=== PATIENT | male | born 1930 | race Caucasian/White ===

== ENCOUNTER 2017-02-27 23:24 | Inpatient (IN) | payer MEDICARE, BC ==
[2017-02-28] MEDS ORDERED: Acetaminophen 325 MG Tab PO PRN (01:04)
[2017-02-28] MEDS ORDERED: Ondansetron 4 MG Tab.DIS PO PRN (01:04)
[2017-02-28] MEDS ORDERED: Bisacodyl 5 MG Tab PO PRN (01:04)
[2017-02-28] MEDS ORDERED: Docusate Sodium 100 MG Cap PO PRN (01:04)
[2017-02-28] MEDS ORDERED: cefTRIAXone 2 GM in Sodium Chloride 0.9% 50 ML IV SCH ×3 (01:04→22:00)
[2017-02-28] MEDS ORDERED: Hypromellose 0.4% Ophth Soln 15 ML Bottle EYEBOTH PRN ×2 (01:04→07:45)
[2017-02-28] MEDS ORDERED: LORazepam 2 MG/ML MDV IV PRN (01:04)
[2017-02-28] MEDS ORDERED: Morphine 2 MG/ML Syringe IVPUSH PRN (01:04)
[2017-02-28] MEDS ORDERED: diphenhydrAMINE 25 MG Cap PO PRN (01:04)
[2017-02-28] MEDS ORDERED: Codeine/guaiFENesin 100mg-10 MG/5 ML Syrup 10 ML Cup PO SCH (01:04)
[2017-02-28] MEDS ORDERED: Magnesium Hydroxide 400 MG/5 ML Susp 30 ML Cup PO PRN (01:04)
[2017-02-28] MEDS ORDERED: Capsaicin 0.025% Crm 60 GM Tube TOP PRN ×2 (01:04→08:00)
[2017-02-28] MEDS ORDERED: Ondansetron 4 MG/2 ML SDV IV PRN (01:04)
[2017-02-28] MEDS ORDERED: Zolpidem 5 MG Tab PO PRN (01:04)
[2017-02-28] MEDS ORDERED: Acetaminophen/HYDROcodone 325-5 MG Tab PO PRN (01:04)
[2017-02-28] MEDS ORDERED: methylPREDNISolone Sodium Succinate 125 MG/2 ML SDV IVPUSH SCH (02:00)
[2017-02-28] MEDS: Melatonin 3 MG Tab PO PRN ×2 (02:19→21:42)
[2017-02-28] MEDS: Sodium Chloride 0.9% 1,000 ML IV SCH ×2 (02:27→08:52)
[2017-02-28] MEDS ORDERED: Pantoprazole 40 MG Vial IV SCH (07:30)
--- NOTE | 2017-02-28 07:33 | PCM.HP ---
H&P History of Present Illness - General Date of Service: 02/28/17 Admit Problem/Dx: Admission Diagnosis/Problem Admission Diagnosis/Problem Pneumonia Source of Information: Patient, EMS Notes Reviewed History Limitations: Reports: Respiratory Distress - History of Present Illness Initial Comments - Free Text/Narative: Pneumonia; this is a 86 year old male, who is a direct admit from [facility] ER, there hospital is divert, therefore we are accepting admission for further care and treatment. Mr. Carrillo arrrives by EMS. Mr. Carrillo reports a 4 day history of cough, congestion, bilateral eye infection. He became progressively weaker with shortness of breath came to ER for treatment from his home at [facility]. In the ER he had labs which show a WBC 12,000, lactic acid 2.7, influenza A and B negative, Chest xray right lower lobe infiltrates. He was given one liter of fluid, Levaquin 750mg IV, Tamiflu 75mg po once, oxygen at 4liter per [place] O2 sat at 90%. Mr. Carrillo has COPD, has home bi-pap for nighttime with oxygen liter flow at 5. 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 lives alone in [facility]. Onset of Symptoms: Reports: Gradual Duration of Symptoms: Reports: Day(s): Location: Reports: Generalized Quality: Reports: Other (shortness of breath) Severity: Severe Improves with: Reports: None Worsens with: Reports: None Associated Symptoms: Reports: Cough, Fever/Chills, Loss of Appetite, Malaise, Shortness of Breath, Weakness Bilateral Eye Pain Score (Numeric/FACES): 2 - Related Data Allergies/Adverse Reactions: Allergies Allergy/AdvReac Type Severity Reaction Status Date / Time No Known Allergies Allergy Verified 02/28/17 01:03 Home Medications: Home Meds Acetaminophen [Mapap] 650 mg PO Q6H PRN 02/28/17 [History] Acetaminophen/HYDROcodone [[place] 325-5 MG] 0.5 - 1 tab PO Q4H PRN 02/28/17 [ History] Albuterol Sulfate 2.5 mg IH Q4H PRN 02/28/17 [History] Amiodarone [Cordarone] 200 mg PO QAM 02/28/17 [History] Ascorbic Acid 1,000 mg PO DAILY 02/28/17 [History] Capsaicin [Zostrix 0.025% Crm] 0.025 gm TP ASDIRECTED PRN 02/28/17 [History] Digoxin 125 mcg PO DAILY 02/28/17 [History] Diltiazem [Cardizem SR] 60 mg PO DAILY 02/28/17 [History] Docusate Sodium 100 mg PO BID 02/28/17 [History] Ferrous Sulfate 325 mg PO BID 02/28/17 [History] Folic Acid 1 mg PO DAILY 02/28/17 [History] Furosemide [Lasix] 40 mg PO BID 02/28/17 [History] Gentamicin [Gentak 0.3% Ophth Oint] 1 - 2 drop EYEBOTH Q4HWA 02/28/17 [History] Metoprolol Tartrate 25 mg PO BID 02/28/17 [History] Multivits,Ca,Min/Iron/FA/Lycop [Centrum Men's Tablet] 1 tab PO QAM 02/28/17 [ History] Vista-3S/DHA/Epa/Fish Oil [Fish Oil Vista-3 Softgel] 1 cap PO BID 02/28/17 [ History] Omeprazole 20 mg PO BIDAC 02/28/17 [History] Polyvinyl Alcohol [Liquitears] 1 drop EYEBOTH ASDIRECTED PRN 02/28/17 [History] Potassium Chloride [Klor-Con M20] 40 meq PO BID 02/28/17 [History] Warfarin Sodium [Coumadin] 4 mg PO DAILY 02/28/17 [History] diphenhydrAMINE [Benadryl] 50 mg PO BEDTIME PRN 02/28/17 [History] Past Medical History Cardiovascular History: Reports: Heart Valve Replacement Other Cardiovascular History: 2 valves Neurological History: Reports: CVA - Past Surgical History Cardiovascular Surgical History: Reports: Valve Replacement Social & Family History - Tobacco Use Smoking Status *Q: Former Smoker Used Tobacco, but Quit: Yes Month Tobacco Last Used: 35 years ago Second Hand Smoke Exposure: No - Caffeine Use Caffeine Use: Reports: None - Recreational Drug Use Recreational Drug Use: No - Living Situation & Occupation Living situation: Reports: Occupation: Retired ( 3 years ago, for 62.5 years, children and extended family in the area, 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 lives in [address].) H&P Review of Systems - Review of Systems: Review Of Systems: See Below General: Reports: Fever, Chills, Malaise, Weakness, Fatigue, Decreased Appetite HEENT: Reports: Rhinitis, Post Nasal Drip, Sinus Congestion, Visual Changes ( bilateral acute eye infections) Pulmonary: Reports: Shortness of Breath, Wheezing, Pleuritic Chest Pain, Cough, Sputum, Other (home Bi-pap with 5 liter of oxygen at night. does not use O2 during the day.) Cardiovascular: Reports: Dyspnea on Exertion Genitourinary: Reports: No Symptoms Musculoskeletal: Reports: No Symptoms Skin: Reports: No Symptoms Psychiatric: Reports: No Symptoms Neurological: Reports: No Symptoms Hematologic/Lymphatic: Reports: No Symptoms Immunologic: Reports: No Symptoms Exam - Exam Exam: See Below - Vital Signs Vital Signs: Last Vital Signs Temp 36.4 C 02/28/17 07:26 Pulse 60 02/28/17 07:26 Resp 18 02/28/17 07:26 BP 118/65 02/28/17 07:26 Pulse Ox 94 L 02/28/17 07:26 Weight: 111.754 kg - Exam Quality Assessment: Supplemental Oxygen General: Alert, Oriented, Cooperative, Mild Distress HEENT: Pupils Equal, Rhinitis (thick green/yellow discharge), Other (bilateral conjunctivitis; sclera injection, mucupurulent discharge from left eye. facial edema.) Neck: Supple, Trachea Midline Lungs: Decreased Breath Sounds, Crackles, Rales (bilateral) Cardiovascular: Regular Rate, Regular Rhythm, Normal S1, Normal S2, Other (mid- line old well healed surgical incision from open heart surgery.) GI/Abdominal Exam: Normal Bowel Sounds, Soft, Non-Tender, Other (large obese abdomen, normal shape and size per patient.) (Male) Exam: Deferred Rectal (Males) Exam: Deferred Back Exam: Normal Inspection, Full Range of Motion Extremities: Normal Inspection, Normal Range of Motion, Non-Tender, No Pedal Edema, Normal Capillary Refill Peripheral Pulses: 2+: Posterior Tibial (L), Posterior Tibial (R), Dorsalis Pedis (L), Dorsalis Pedis (R) Skin: Warm, Dry, Intact, Other (bilateral erythema surrounding eyes.) Neurological: Cranial Nerves Intact, Reflexes Equal Bilateral Neuro Extensive - Mental Status: Alert, Oriented x3, Normal Mood/Affect, Normal Cognition, Memory Intact Neuro Extensive - Motor, Sensory, Reflexes: Motor/Sensory Deficits Psychiatric: Alert, Normal Affect, Normal Mood - Patient Data Lab Results Last 24 hrs: Laboratory Results - last 24 hr 02/28/17 02/28/17 02/28/17 Range/Units 01:21 01:21 05:50 WBC 11.5 H (4.5-11.0) K/uL RBC 4.87 (4.30-5.90) M/uL Hgb 14.8 (12.0-15.0) g/dL Hct 45.7 (40.0-54.0) % MCV 94 (80-98) fL MCH 30 (27-31) pg MCHC 32 (32-36) % Plt Count 156 (150-400) K/uL Neut % (Auto) 90 H (36-66) % Lymph % (Auto) 6 L (24-44) % Platte % (Auto) 4 (2-6) % Eos % (Auto) 0 L (2-4) % Baso % (Auto) 0 (0-1) % PT (9.5-12.0) sec INR (0.80-1.20) Sodium (140-148) mmol/L Potassium (3.6-5.2) mmol/L Chloride (100-108) mmol/L Carbon Dioxide (21-32) mmol/L Anion Gap (5.0-14.0) mmol/L BUN (7-18) mg/dL Creatinine (0.8-1.3) mg/dL Est Cr Clr Drug Dosing mL/min Estimated GFR (MDRD) (>60) Glucose (74-106) mg/dL Lactic Acid 2.4 H (0.4-2.0) mmol/L Calcium (8.5-10.1) mg/dL Total Bilirubin (0.2-1.0) mg/dL AST (15-37) U/L ALT (12-78) U/L Alkaline Phosphatase (46-116) U/L C-Reactive Protein 17.42 H (0.0-0.3) mg/dL Total Protein (6.4-8.2) g/dL Albumin (3.4-5.0) g/dL Globulin (2.3-3.5) g/dL Albumin/Globulin Ratio (1.2-2.2) 02/28/17 02/28/17 Range/Units 05:50 05:50 WBC (4.5-11.0) K/uL RBC (4.30-5.90) M/uL Hgb (12.0-15.0) g/dL Hct (40.0-54.0) % MCV (80-98) fL MCH (27-31) pg MCHC (32-36) % Plt Count (150-400) K/uL Neut % (Auto) (36-66) % Lymph % (Auto) (24-44) % Platte % (Auto) (2-6) % Eos % (Auto) (2-4) % Baso % (Auto) (0-1) % PT 40.8 H (9.5-12.0) sec INR 3.61 H (0.80-1.20) Sodium 140 (140-148) mmol/L Potassium 3.9 (3.6-5.2) mmol/L Chloride 102 (100-108) mmol/L Carbon Dioxide 31 (21-32) mmol/L Anion Gap 7.4 (5.0-14.0) mmol/L BUN 28 H (7-18) mg/dL Creatinine 0.9 (0.8-1.3) mg/dL Est Cr Clr Drug Dosing 60.83 mL/min Estimated GFR (MDRD) > 60 (>60) Glucose 202 H (74-106) mg/dL Lactic Acid (0.4-2.0) mmol/L Calcium 7.5 L (8.5-10.1) mg/dL Total Bilirubin 0.7 (0.2-1.0) mg/dL AST 46 H (15-37) U/L ALT 41 (12-78) U/L Alkaline Phosphatase 62 (46-116) U/L C-Reactive Protein (0.0-0.3) mg/dL Total Protein 4.4 L (6.4-8.2) g/dL Albumin 1.4 L (3.4-5.0) g/dL Globulin 3.0 (2.3-3.5) g/dL Albumin/Globulin Ratio 0.5 L (1.2-2.2) Result Diagrams: 02/28/17 05:50 02/28/17 05:50 Fran Results Last 24 hrs: Microbiology 02/28/17 01:36 Gram Stain - Final Sputum - Expectorated *Q Meaningful Use (ADM) - VTE *Q VTE Criteria *Q: - Stroke *Q Stroke Criteria *Q: - AMI *Q AMI Criteria *Q: - Problem List (1) Pneumonia SNOMED Code(s): 790176255 ICD Code: J18.9 - PNEUMONIA, UNSPECIFIED ORGANISM Status: Acute Priority : High Current Visit: Yes Qualifiers: Pneumonia type: due to unspecified organism Laterality: right Lung location: lower lobe of lung Qualified Code(s): J18.1 - Lobar pneumonia, unspecified organism (2) HTN (hypertension) SNOMED Code(s): 73209711 ICD Code: I10 - ESSENTIAL (PRIMARY) HYPERTENSION Status: Acute Priority: High Current Visit: Yes Qualifiers: Hypertension type: essential hypertension Qualified Code(s): I10 - Essential (primary) hypertension (3) Conjunctivitis of both eyes SNOMED Code(s): 0739291 ICD Code: H10.9 - UNSPECIFIED CONJUNCTIVITIS Status: Acute Priority: High Current Visit: Yes Qualifiers: Conjunctivitis type: acute Acute conjunctivitis type: bacterial Qualified Code(s): H10.33 - Unspecified acute conjunctivitis, bilateral (4) History of artificial heart valve Status: Acute Priority: High Current Visit: Yes Problem List Initiated/Reviewed/Updated: Yes Orders Last 24hrs: Active Orders 24 hr Category Date Time Status Patient Status [ADT] Routine ADT 02/28/17 01:04 Active Bedrest Bathroom Privileges [RC] ASDIRECTED Care 02/28/17 01:04 Active Intake and Output [RC] QSHIFT Care 02/28/17 01:04 Active Notify Provider Vital Signs [RC] ASDIRECTED Care 02/28/17 01:04 Active Oxygen Therapy [RC] PRN Care 02/28/17 01:04 Active Pulse Oximetry [RC] CONTINUOUS Care 02/28/17 01:04 Active RT Aerosol Therapy [RC] ASDIRECTED Care 02/28/17 01:04 Active RT Incentive Spirometry [RC] ASDIRECTED Care 02/28/17 01:04 Active VTE/DVT Education [RC] Per Unit Routine Care 02/28/17 01:04 Active Vital Signs [RC] Q4H Care 02/28/17 01:04 Active OT Evaluation and Treatment [CONS] Routine Cons 02/28/17 01:04 Active PT Evaluation and Treatment [CONS] Routine Cons 02/28/17 01:04 Active Regular Diet [DIET] Diet 02/28/17 Breakfast Active Chest 1V Frontal [CR] AM Exams 02/28/17 05:11 Taken CULTURE RESPIRATORY + SMEAR [RM] Stat Lab 02/28/17 01:36 Results UA W/MICROSCOPIC [URIN] Urgent Lab 02/28/17 01:04 Uncollected Acetaminophen [Tylenol] Med 02/28/17 01:04 Active 650 mg PO Q4H PRN Acetaminophen/HYDROcodone [Lansing 325-5 MG] Med 02/28/17 01:04 Active 1 tab PO Q4H PRN Albuterol [Proventil Neb Soln] Med 02/28/17 01:04 Active 2.5 mg NEB Q4H PRN Albuterol/Ipratropium [DuoNeb 3.0-0.5 MG/3 ML] Med 02/28/17 07:00 Active 3 ml NEB QIDRT Amiodarone [Cordarone] Med 02/28/17 09:00 Active 200 mg PO QAM Ascorbic Acid [Vitamin C] Med 02/28/17 09:00 Active 1,000 mg PO DAILY Bisacodyl [Dulcolax] Med 02/28/17 01:04 Active 5 mg PO DAILY PRN Capsaicin [Zostrix 0.025% Crm] Med 02/28/17 01:04 Active 0.025 gm TOP ASDIRECTED PRN Codeine/guaiFENesin [Robitussin AC] Med 02/28/17 01:04 Active 10 ml PO Q6H Digoxin [Lanoxin] Med 02/28/17 09:00 Active 125 mcg PO DAILY Diltiazem [Cardizem SR] Med 02/28/17 09:00 Active 60 mg PO DAILY Docusate Sodium [Colace] Med 02/28/17 01:04 Active 100 mg PO BID PRN Ferrous Sulfate Med 02/28/17 09:00 Active 325 mg PO BID Folic Acid Med 02/28/17 09:00 Active 1 mg PO DAILY Furosemide [Lasix] Med 02/28/17 08:00 Active 40 mg PO BIDDIURETIC Gentamicin [Gentak 0.3% Ophth Oint] Med 02/28/17 01:04 Pending DOSE gm EYEBOTH Q4HWA Hypromellose [Natural Balance Tears] Med 02/28/17 01:04 Active 1 ml EYEBOTH ASDIRECTED PRN LORazepam [Ativan] Med 02/28/17 01:04 Active 1 mg IV Q6H PRN Levofloxacin/Dextrose 5%-Water [Levaquin in D5W 750 MG/ Med 02/28/17 21:00 Active 150 ML] 750 mg Premix Bag 1 bag IV Q24H Magnesium Hydroxide [Milk of Magnesia] Med 02/28/17 01:04 Active 30 ml PO Q12H PRN Melatonin Med 02/28/17 01:04 Active 6 mg PO BEDTIME PRN Metoprolol Tartrate [Lopressor] Med 02/28/17 09:00 Active 25 mg PO BID Morphine Med 02/28/17 01:04 Active 2 mg IVPUSH Q2H PRN Ondansetron [Zofran ODT] Med 02/28/17 01:04 Active 4 mg PO Q6H PRN Ondansetron [Zofran] Med 02/28/17 01:04 Active 4 mg IV Q4H PRN Pantoprazole [ProTONIX IV] Med 02/28/17 07:30 Active 40 mg IV ACBREAKFAST Pneumococcal Polyvalent-23 Vac [Pneumovax 23] Med 03/02/17 14:00 Once 0.5 ml IM .ONCE ONE Potassium Chloride [Klor-Con M20] Med 02/28/17 09:00 Active 40 meq PO BID Sodium Chloride 0.9% [Normal Saline] 1,000 ml Med 02/28/17 01:04 Active IV ASDIRECTED Warfarin [Coumadin] Med 02/28/17 14:00 Active 4 mg PO DAILY@1400 Zolpidem [Ambien] Med 02/28/17 01:04 Active 5 mg PO BEDTIME PRN cefTRIAXone [Rocephin] 2 gm Med 02/28/17 01:30 Active Sodium Chloride 0.9% [Normal Saline] 50 ml IV Q24H diphenhydrAMINE [Benadryl] Med 02/28/17 01:04 Active 50 mg PO BEDTIME PRN methylPREDNISolone Sod Succ [Solu-MEDROL] Med 02/28/17 02:00 Active 125 mg IVPUSH Q8H Blood Culture x2 Reflex Set [OM.PC] Urgent Oth 02/28/17 01:04 Ordered Give supplemental Oxygen PRN [COMM] Routine Oth 02/28/17 01:04 Ordered Resuscitation Status Routine Resus Stat 02/28/17 00:23 Ordered Medication Orders Acetaminophen (Tylenol) 650 mg PO Q4H PRN PRN Reason: Pain (Mild 1-3)/fever Hydrocodone Bitart/Acetaminophen ([place]ing 325-5 Mg) 1 tab PO Q4H PRN PRN Reason: Pain (moderate 4-6) Albuterol (Proventil Neb Soln) 2.5 mg NEB Q4H PRN PRN Reason: Shortness Of Breath/wheezing Albuterol/Ipratropium (Duoneb 3.0-0.5 Mg/3 Ml) 3 ml NEB QIDRT [facility] Amiodarone HCl (Cordarone) 200 mg PO QAM [facility] Artificial Tears (Natural Balance Tears) 1 ml EYEBOTH ASDIRECTED PRN PRN Reason: Dry Eyes Ascorbic Acid (Vitamin C) 1,000 mg PO DAILY [facility] Bisacodyl (Dulcolax) 5 mg PO DAILY PRN PRN Reason: Constipation Capsaicin (Zostrix 0.025% Crm) 0.025 gm TOP ASDIRECTED PRN PRN Reason: Pain Digoxin (Lanoxin) 125 mcg PO DAILY [facility] Diltiazem HCl (Cardizem Sr) 60 mg PO DAILY [facility] Diphenhydramine HCl (Benadryl) 50 mg PO BEDTIME PRN PRN Reason: Sleep Docusate Sodium (Colace) 100 mg PO BID PRN PRN Reason: Constipation Ferrous Sulfate (Ferrous Sulfate) 325 mg PO BID [facility] Folic Acid (Folic Acid) 1 mg PO DAILY [facility] Furosemide (Lasix) 40 mg PO BIDDIURETIC [facility] Gentamicin Sulfate (Gentak 0.3% Ophth Oint) gm EYEBOTH Q4HWA [facility]AL[facility] Guaifenesin/Codeine Phosphate (Robitussin Ac) 10 ml PO Q6H [facility]AL[facility] Last Admin: 02/28/17 02:19 Dose: Not Given Levofloxacin/Dextrose 750 mg/ (Premix) 150 mls @ 100 mls/hr IV Q24H [facility] Sodium Chloride (Normal Saline) 1,000 mls @ 125 mls/hr IV ASDIRECTED [facility] Last Admin: 02/28/17 02:27 Dose: 125 mls/hr Ceftriaxone Sodium 2 gm/ (Sodium Chloride) 50 mls @ 100 mls/hr IV Q24H [facility] Last Admin: 02/28/17 02:19 Dose: 100 mls/hr Lorazepam (Ativan) 1 mg IV Q6H PRN PRN Reason: Nausea/Vomiting Magnesium Hydroxide (Milk Of Magnesia) 30 ml PO Q12H PRN PRN Reason: Constipation Melatonin (Melatonin) 6 mg PO BEDTIME PRN PRN Reason: Insomnia Last Admin: 02/28/17 02:19 Dose: 6 mg Methylprednisolone Sodium Succinate (Solu-Medrol) 125 mg IVPUSH Q8H [facility] Last Admin: 02/28/17 02:19 Dose: 125 mg Metoprolol Tartrate (Lopressor) 25 mg PO BID [facility] Morphine Sulfate (Morphine) 2 mg IVPUSH Q2H PRN PRN Reason: Pain (severe 7-10) Ondansetron HCl (Zofran Odt) 4 mg PO Q6H PRN PRN Reason: Nausea able to take PO Ondansetron HCl (Zofran) 4 mg IV Q4H PRN PRN Reason: Nausea/Vomiting Pantoprazole Sodium (Protonix Iv) 40 mg IV ACBREAKFAST [facility] Pneumococcal Polyvalent Vaccine (Pneumovax 23) 0.5 ml IM .ONCE ONE Stop: 03/02/17 14:01 Potassium Chloride (Klor-Con M20) 40 meq PO BID [facility] Warfarin Sodium (Coumadin) 4 mg PO DAILY@1400 [facility] Zolpidem Tartrate (Ambien) 5 mg PO BEDTIME PRN PRN Reason: Sleep Assessment/Plan Comment:: Assessment/Plan Comment:: ASSESSMENT AND PLAN - Mr. Carrillo reports a 4 day history of cough, congestion, bilateral eye infection. He became progressively weaker with shortness of breath came to ER for treatment from his home at [facility]. In the ER he had labs which show a WBC 12,000, lactic acid 2.7, influenza A and B negative, Chest xray right lower lobe infiltrates. He was given one liter of fluid, Levaquin 750mg IV, Tamiflu 75mg po once, oxygen at 4liter per [place] O2 sat at 90%. Right lower lober pneumonia with hypoxia - history of COPD. He is hypoxic and requiring supplemental oxygen and not safe for outpatient management. No fevers at this time. No recent antibiotics. -IV Levofloxacin 750mg every 24 hours -IV Rocephin 2mg every 24 hours -IV fluid bolus followed by continuous infusion overnight -Sputum culture pending -Supplement oxygen at 4 liters per NC -Scheduled and as needed nebulizers -IV Solumedrol 125mg mg now and every 8 hours Essential hypertension - blood pressure currently normal but will need to be monitored closely with active infection. Usual medications will be continued unless blood pressure trends down Hx of artificial Heart Valve replacement -Coumadin therapy -continue home medication Bilateral Conjunctivitis -Gentamycin opth ointment as directed -eye care cleansing. Maintenance issues - - DVT prophylaxis - enoxaparin - GI prophylaxis - IV Protonix 40mg po daily - Nutrition - regular diet - Sarmiento catheter - not indicated CODE STATUS - DNR/DNI Admission justification - This patient will be admitted for inpatient services and is medically appropriate meeting medical necessity for inpatient admission as outlined in my documentation. I reasonably expect the patient will require inpatient services that span a period time over 2 midnights. I reasonably expect this patient to be discharged or transferred within 96 hours [facility]. Disposition - anticipate discharge home after the hospital stay [facility] physician - [facility]: Kenroy Haney M.D.
[2017-02-28] MEDS: Albuterol/Ipratropium 3.0-0.5 MG/3 ML Neb Soln NEB SCH ×4 (08:26→21:33)
[2017-02-28] MEDS: Potassium Chloride 20 MEQ Tab.ER PO SCH ×2 (08:46→16:43)
[2017-02-28] MEDS: Pantoprazole 40 MG Tab.CR PO SCH (08:46)
[2017-02-28] MEDS: Furosemide 40 MG Tab PO SCH ×2 (08:46→13:37)
[2017-02-28] MEDS: Ascorbic Acid 500 MG Tab PO SCH (08:47)
[2017-02-28] MEDS: Amiodarone 200 MG Tab PO SCH (08:47)
[2017-02-28] MEDS: Folic Acid 1 MG Tab PO SCH (08:47)
[2017-02-28] MEDS: Codeine/guaiFENesin 100mg-10 MG/5 ML Syrup 10 ML Cup PO SCH ×3 (08:47→21:34)
[2017-02-28] MEDS: Levofloxacin/Dextrose 5%-Water 750 MG in Premix Bag 1 BAG IV SCH (08:47)
[2017-02-28] MEDS ORDERED: Ferrous Sulfate 325 MG Tab PO SCH (09:00)
[2017-02-28] MEDS: methylPREDNISolone Sodium Succinate 125 MG/2 ML SDV IVPUSH SCH ×2 (10:29→18:50)
[2017-02-28] MEDS: Diltiazem 60 MG Cap.SR PO SCH (11:10)
[2017-02-28] MEDS: Metoprolol Tartrate 25 MG Tab PO SCH ×2 (11:16→21:38)
[2017-02-28] MEDS: Gentamicin 0.3% Ophth Soln 5 ML Bottle EYEBOTH SCH ×4 (11:26→21:59)
[2017-02-28] MEDS: Digoxin 125 MCG Tab PO SCH (13:38)
[2017-02-28] MEDS ORDERED: Sodium Chloride 0.9% 1,000 ML IV SCH (15:05)
[2017-02-28] MEDS: metFORMIN 500 MG Tab PO SCH (16:43)
[2017-03-01] MEDS: methylPREDNISolone Sodium Succinate 125 MG/2 ML SDV IVPUSH SCH (02:52)
[2017-03-01] MEDS: Albuterol/Ipratropium 3.0-0.5 MG/3 ML Neb Soln NEB SCH ×4 (07:06→20:43)
[2017-03-01] MEDS: Gentamicin 0.3% Ophth Soln 5 ML Bottle EYEBOTH SCH ×5 (07:57→22:04)
[2017-03-01] MEDS: metFORMIN 500 MG Tab PO SCH ×2 (08:00→16:51)
[2017-03-01] MEDS: Pantoprazole 40 MG Tab.CR PO SCH (08:00)
[2017-03-01] MEDS: predniSONE 20 MG Tab PO SCH ×2 (08:01→15:39)
[2017-03-01] MEDS: Potassium Chloride 20 MEQ Tab.ER PO SCH ×2 (08:01→16:51)
[2017-03-01] MEDS: Diltiazem 60 MG Cap.SR PO SCH (08:01)
[2017-03-01] MEDS: Furosemide 40 MG Tab PO SCH ×2 (08:01→14:46)
[2017-03-01] MEDS: Levofloxacin/Dextrose 5%-Water 750 MG in Premix Bag 1 BAG IV SCH (08:01)
[2017-03-01] MEDS: Ascorbic Acid 500 MG Tab PO SCH (08:02)
[2017-03-01] MEDS: Amiodarone 200 MG Tab PO SCH (08:02)
[2017-03-01] MEDS: Metoprolol Tartrate 25 MG Tab PO SCH ×2 (08:02→20:48)
[2017-03-01] MEDS: Folic Acid 1 MG Tab PO SCH (08:02)
[2017-03-01] MEDS: Codeine/guaiFENesin 100mg-10 MG/5 ML Syrup 10 ML Cup PO SCH ×3 (08:09→20:49)
[2017-03-01] MEDS: Digoxin 125 MCG Tab PO SCH (14:45)
--- NOTE | 2017-03-01 15:24 | PCM.PN ---
- General Info Date of Service: 03/01/17 Functional Status: Reports: Pain Controlled, Tolerating Diet - Review of Systems General: Denies: Fever Pulmonary: Reports: Cough Systems Review Comment:: No acute events overnight. Patient did use C Pap with oxygen overnight but is off supplemental oxygen this morning. Cough is getting better. Appetite is excellent. Strength seems to be improving but he remains weak from baseline. He has not had any fevers. Tolerating current medications. Blood sugars have risen with the use of steroids. - Patient Data Vitals - Most Recent: Last Vital Signs Temp 36.8 C 03/01/17 14:38 Pulse 60 03/01/17 14:45 Resp 16 03/01/17 14:38 BP 101/55 L 03/01/17 14:38 Pulse Ox 99 03/01/17 14:38 Weight - Most Recent: 111.754 kg I&O - Last 24 Hours: Intake & Output 03/01/17 03/01/17 03/01/17 06:59 14:59 22:59 Intake Total 1595 Output Total 725 700 Balance -725 895 Lab Results Last 24 Hours: Laboratory Results - last 24 hr 03/01/17 03/01/17 03/01/17 Range/Units 06:01 06:01 11:19 WBC 10.4 (4.5-11.0) K/uL RBC 4.69 (4.30-5.90) M/uL Hgb 14.1 (12.0-15.0) g/dL Hct 43.8 (40.0-54.0) % MCV 93 (80-98) fL MCH 30 (27-31) pg MCHC 32 (32-36) % Plt Count 174 (150-400) K/uL PT 32.6 H (9.5-12.0) sec INR 2.91 H (0.80-1.20) Sodium 140 (140-148) mmol/L Potassium 4.3 (3.6-5.2) mmol/L Chloride 103 (100-108) mmol/L Carbon Dioxide 27 (21-32) mmol/L Anion Gap 9.6 (5.0-14.0) mmol/L BUN 32 H (7-18) mg/dL Creatinine 1.0 (0.8-1.3) mg/dL Est Cr Clr Drug Dosing 54.75 mL/min Estimated GFR (MDRD) > 60 (>60) Glucose 296 H (74-106) mg/dL Calcium 7.3 L (8.5-10.1) mg/dL Fran Results Last 24 Hours: Microbiology 02/28/17 01:36 Gram Stain - Final Sputum - Expectorated Respiratory Culture - Preliminary NORMAL RESPIRATORY [facility]ROS 1 DAY Med Orders - Current: Current Medications Acetaminophen (Tylenol) 650 mg PO Q4H PRN PRN Reason: Pain (Mild 1-3)/fever Hydrocodone Bitart/Acetaminophen ([place] 325-5 Mg) 1 tab PO Q4H PRN PRN Reason: Pain (moderate 4-6) Albuterol (Proventil Neb Soln) 2.5 mg NEB Q4H PRN PRN Reason: Shortness Of Breath/wheezing Albuterol/Ipratropium (Duoneb 3.0-0.5 Mg/3 Ml) 3 ml NEB QIDRT [facility] Last Admin: 03/01/17 14:24 Dose: 3 ml Amiodarone HCl (Cordarone) 200 mg PO QAM [facility] Last Admin: 03/01/17 08:02 Dose: 200 mg Artificial Tears (Natural Balance Tears) 0 ml EYEBOTH ASDIRECTED PRN PRN Reason: Dry Eyes Ascorbic Acid (Vitamin C) 1,000 mg PO DAILY [facility] Last Admin: 03/01/17 08:02 Dose: 1,000 mg Bisacodyl (Dulcolax) 5 mg PO DAILY PRN PRN Reason: Constipation Capsaicin (Zostrix 0.025% Crm) 0 gm TOP ASDIRECTED PRN PRN Reason: Pain Digoxin (Lanoxin) 125 mcg PO DAILY@1300 [facility] Last Admin: 03/01/17 14:45 Dose: 125 mcg Diltiazem HCl (Cardizem Sr) 60 mg PO DAILY [facility] Last Admin: 03/01/17 08:01 Dose: 60 mg Diphenhydramine HCl (Benadryl) 50 mg PO BEDTIME PRN PRN Reason: Sleep Last Admin: 02/28/17 23:52 Dose: 50 mg Docusate Sodium (Colace) 100 mg PO BID PRN PRN Reason: Constipation Folic Acid (Folic Acid) 1 mg PO DAILY [facility] Last Admin: 03/01/17 08:02 Dose: 1 mg Furosemide (Lasix) 40 mg PO BIDDIURETIC [facility] Last Admin: 03/01/17 14:46 Dose: 40 mg Gentamicin Sulfate (Garamycin 0.3% Ophth Soln) 0 ml EYEBOTH Q4HWA [facility] Stop: 03/04/17 23:01 Last Admin: 03/01/17 12:00 Dose: 2 drop Guaifenesin/Codeine Phosphate (Robitussin Ac) 10 ml PO TID [facility] Last Admin: 03/01/17 14:46 Dose: 10 ml Levofloxacin/Dextrose 750 mg/ (Premix) 150 mls @ 100 mls/hr IV Q24H [facility] Last Admin: 03/01/17 08:01 Dose: 100 mls/hr Insulin Aspart (Novolog) 0 unit SUBCUT QIDACANDBED [facility] PRN Reason: Protocol Magnesium Hydroxide (Milk Of Magnesia) 30 ml PO Q12H PRN PRN Reason: Constipation Melatonin (Melatonin) 6 mg PO BEDTIME PRN PRN Reason: Insomnia Last Admin: 02/28/17 21:42 Dose: 6 mg Metformin HCl (Glucophage) 500 mg PO ACBREAKFAST [facility] Last Admin: 03/01/17 08:00 Dose: 500 mg Metformin HCl (Glucophage) 1,000 mg PO WITHDINNER [facility] Last Admin: 02/28/17 16:43 Dose: 1,000 mg Metoprolol Tartrate (Lopressor) 25 mg PO BID [facility] Last Admin: 03/01/17 08:02 Dose: 25 mg Morphine Sulfate (Morphine) 2 mg IVPUSH Q2H PRN PRN Reason: Pain (severe 7-10) Ondansetron HCl (Zofran Odt) 4 mg PO Q6H PRN PRN Reason: Nausea able to take PO Ondansetron HCl (Zofran) 4 mg IV Q4H PRN PRN Reason: Nausea/Vomiting Pantoprazole Sodium (Protonix) 40 mg PO ACBREAKFAST [facility] Last Admin: 03/01/17 08:00 Dose: 40 mg Phenyleph/Shark Oil/Min Oil/Petrol (Preparation H Oint) 0 gm RECTAL ASDIRECTED PRN PRN Reason: Hemorrhoids Pneumococcal Polyvalent Vaccine (Pneumovax 23) 0.5 ml IM .ONCE ONE Stop: 03/02/17 14:01 Potassium Chloride (Klor-Con M20) 40 meq PO BIDMEALS [facility] Last Admin: 03/01/17 08:01 Dose: 40 meq Prednisone (Prednisone) 20 mg PO BIDAC [facility] Last Admin: 03/01/17 08:01 Dose: 20 mg Warfarin Sodium (Coumadin) 4 mg PO DAILY@1300 [facility] Last Admin: 03/01/17 14:45 Dose: 4 mg Zolpidem Tartrate (Ambien) 5 mg PO BEDTIME PRN PRN Reason: Sleep Discontinued Medications Ferrous Sulfate (Ferrous Sulfate) 325 mg PO BID [facility] Last Admin: 02/28/17 08:47 Dose: 325 mg Guaifenesin/Codeine Phosphate (Robitussin Ac) 10 ml PO Q6H [facility] Last Admin: 02/28/17 02:19 Dose: Not Given Guaifenesin/Codeine Phosphate (Robitussin Ac) 10 ml PO Q6H [facility] Last Admin: 02/28/17 13:37 Dose: 10 ml Ceftriaxone Sodium 2 gm/ (Sodium Chloride) 50 mls @ 100 mls/hr IV Q8H [facility] Last Admin: 02/28/17 02:35 Dose: Not Given Sodium Chloride (Normal Saline) 1,000 mls @ 125 mls/hr IV ASDIRECTED [facility] Last Admin: 02/28/17 08:52 Dose: 125 mls/hr Ceftriaxone Sodium 2 gm/ (Sodium Chloride) 50 mls @ 100 mls/hr IV Q24H [facility] Last Admin: 02/28/17 02:19 Dose: 100 mls/hr Ceftriaxone Sodium 2 gm/ (Sodium Chloride) 50 mls @ 100 mls/hr IV Q24H [facility] Last Admin: 02/28/17 21:39 Dose: 100 mls/hr Sodium Chloride (Normal Saline) 1,000 mls @ 75 mls/hr IV ASDIRECTED [facility] Last Admin: 02/28/17 21:39 Dose: 75 mls/hr Lorazepam (Ativan) 1 mg IV Q6H PRN PRN Reason: Nausea/Vomiting Methylprednisolone Sodium Succinate (Solu-Medrol) 125 mg IVPUSH Q8H [facility] Last Admin: 02/28/17 02:19 Dose: 125 mg Methylprednisolone Sodium Succinate (Solu-Medrol) 62.5 mg IVPUSH Q8H [facility] Stop: 03/01/17 02:00 Last Admin: 03/01/17 02:52 Dose: 62.5 mg Warfarin Sodium (Coumadin) 4 mg PO DAILY@1300 [facility] - Exam Quality Assessment: No: Supplemental Oxygen General: Alert, Oriented, Cooperative, No Acute Distress Neck: Supple Lungs: Normal Respiratory Effort, Crackles (right lung base) Cardiovascular: Regular Rate, Regular Rhythm GI/Abdominal Exam: Soft, No Distention Extremities: Pedal Edema Psy/Mental Status: Alert, Normal Affect - Problem List Review Problem List Initiated/Reviewed/Updated: Yes - My Orders Last 24 Hours: My Active Orders 02/28/17 17:00 metFORMIN [Glucophage] 1,000 mg PO WITHDINNER 02/28/17 21:00 Codeine/guaiFENesin [Robitussin AC] 10 ml PO TID 03/01/17 07:30 metFORMIN [Glucophage] 500 mg PO ACBREAKFAST 03/01/17 08:00 predniSONE 20 mg PO BIDAC 03/01/17 09:28 MO/Pet,Wh/Phenylephrine/Shk Lv [Preparation H Oint] 0 gm RECTAL ASDIRECTED PRN 03/01/17 11:20 Convert IV to Saline Lock [OM.PC] Routine 03/01/17 12:54 Communication Order [RC] PRN Communication Order [RC] PRN Diabetes Education [RC] Click to Edit Notify Provider [RC] PRN 03/01/17 13:00 Warfarin [Coumadin] 4 mg PO DAILY@1300 03/01/17 16:30 GLUCOSE POC LAB TO COLLECT [POC] QIDACANDBED 03/01/17 17:00 Insulin Aspart [NovoLOG] See Protocol SUBCUT QIDACANDBED 03/01/17 21:00 GLUCOSE POC LAB TO COLLECT [POC] QIDACANDBED 03/02/17 05:00 BASIC METABOLIC PANEL,BMP [CHEM] Timed CBC W/O DIFF,HEMOGRAM [HEME] Timed (1) INR,PT,PROTHROMBIN TIME [COAG] Timed 03/02/17 07:30 GLUCOSE POC LAB TO COLLECT [POC] QIDACANDBED 03/02/17 11:30 GLUCOSE POC LAB TO COLLECT [POC] QIDACANDBED 03/02/17 14:00 Pneumococcal Polyvalent-23 Vac [Pneumovax 23] 0.5 ml IM .ONCE ONE 03/02/17 16:30 GLUCOSE POC LAB TO COLLECT [POC] QIDACANDBED 03/02/17 21:00 GLUCOSE POC LAB TO COLLECT [POC] QIDACANDBED 03/03/17 07:30 GLUCOSE POC LAB TO COLLECT [POC] QIDACANDBED 03/03/17 11:30 GLUCOSE POC LAB TO COLLECT [POC] QIDACANDBED 03/03/17 16:30 GLUCOSE POC LAB TO COLLECT [POC] QIDACANDBED 03/03/17 21:00 GLUCOSE POC LAB TO COLLECT [POC] QIDACANDBED 03/04/17 07:30 GLUCOSE POC LAB TO COLLECT [POC] QIDACANDBED 03/04/17 11:30 GLUCOSE POC LAB TO COLLECT [POC] QIDACANDBED 03/04/17 16:30 GLUCOSE POC LAB TO COLLECT [POC] QIDACANDBED 03/04/17 21:00 GLUCOSE POC LAB TO COLLECT [POC] QIDACANDBED 03/05/17 07:30 GLUCOSE POC LAB TO COLLECT [POC] QIDACANDBED 03/05/17 11:30 GLUCOSE POC LAB TO COLLECT [POC] QIDACANDBED - Plan Plan:: ASSESSMENT AND PLAN - Right lower lober pneumonia with hypoxia - clinically doing better and off supplemental oxygen this morning. Did require some oxygen overnight. He has not had any fevers. Tolerating current antibiotics. 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 -Continue metformin -High-dose sliding scale insulin Essential hypertension - blood pressure currently normal but will need to be monitored closely with active infection. Usual medications will be continued unless blood pressure trends down Hx of artificial Heart Valve replacement - INR therapeutic -Coumadin therapy -continue home medication Bilateral Conjunctivitis - clinically much better -Gentamycin opth ointment as directed -eye care cleansing Maintenance issues - - DVT prophylaxis - warfarin - GI prophylaxis - PPI - Nutrition - regular diet - Sarmiento catheter - not indicated Disposition - anticipate discharge home after the hospital stay Primary care physician - [facility] Kenroy Haney M.D.
[2017-03-01] MEDS ORDERED: Insulin Aspart 100 Units/ML 3 ML Pen SUBCUT ONE (16:45)
[2017-03-01] MEDS ORDERED: Insulin Aspart 100 Units/ML 3 ML Pen SUBCUT SCH (17:00)
[2017-03-01] MEDS: Melatonin 3 MG Tab PO PRN (20:50)
[2017-03-01] MEDS: Insulin Aspart 100 Units/ML 3 ML Pen SUBCUT SCH (20:52)
[2017-03-01] MEDS: Mineral Oil/Petrolatum/Phenylephrine/Shark Liver Oil Oint 57 GM Tube RECTAL PRN (22:06)
[2017-03-02] MEDS: Albuterol/Ipratropium 3.0-0.5 MG/3 ML Neb Soln NEB SCH ×4 (07:35→21:42)
[2017-03-02] MEDS: Albuterol 0.083% 2.5 MG/3 ML Neb Soln NEB PRN (07:43)
[2017-03-02] MEDS: Gentamicin 0.3% Ophth Soln 5 ML Bottle EYEBOTH SCH ×5 (07:44→22:55)
[2017-03-02] MEDS: Levofloxacin/Dextrose 5%-Water 750 MG in Premix Bag 1 BAG IV SCH ×2 (07:46→08:35)
[2017-03-02] MEDS: predniSONE 20 MG Tab PO SCH (07:50)
[2017-03-02] MEDS: Furosemide 40 MG Tab PO SCH ×2 (07:50→13:31)
[2017-03-02] MEDS: Pantoprazole 40 MG Tab.CR PO SCH (07:51)
[2017-03-02] MEDS: metFORMIN 500 MG Tab PO SCH ×2 (07:51→17:39)
[2017-03-02] MEDS: Insulin Aspart 100 Units/ML 3 ML Pen SUBCUT SCH ×4 (07:51→21:43)
[2017-03-02] MEDS: Potassium Chloride 20 MEQ Tab.ER PO SCH ×2 (07:57→17:40)
[2017-03-02] MEDS: Amiodarone 200 MG Tab PO SCH (09:37)
[2017-03-02] MEDS: Diltiazem 60 MG Cap.SR PO SCH (09:37)
[2017-03-02] MEDS: Metoprolol Tartrate 25 MG Tab PO SCH ×2 (09:37→21:46)
[2017-03-02] MEDS: Folic Acid 1 MG Tab PO SCH (09:37)
[2017-03-02] MEDS: Ascorbic Acid 500 MG Tab PO SCH (09:38)
[2017-03-02] MEDS: Codeine/guaiFENesin 100mg-10 MG/5 ML Syrup 10 ML Cup PO SCH ×3 (09:43→21:42)
--- NOTE | 2017-03-02 09:51 | CR ---
Chest 1V Frontal HISTORY: Pneumonia. COMPARISON: None FINDINGS: The sided pacemaker. Moderate cardiomegaly. Prior median sternotomy. Rotated film to the [facility]. No focal infiltrates or acute congestive change.
[2017-03-02] MEDS: Digoxin 125 MCG Tab PO SCH (12:22)
--- NOTE | 2017-03-02 12:54 | PCM.PN ---
- General Info Date of Service: 03/02/17 Subjective Update: This patient has shown further improvement over the past 24 hours, breathing is been much better but not yet back to baseline. He did have an episode of coughing with shortness of breath earlier this morning. Vital signs otherwise have been stable and he has remained afebrile. Functional Status: Reports: Tolerating Diet, Urinating - Review of Systems General: Denies: Fever, Weakness, Chills Pulmonary: Reports: Shortness of Breath, Cough, Wheezing. Denies: Pleuritic Chest Pain, Sputum, Hemoptysis Cardiovascular: Reports: Dyspnea on Exertion. Denies: Chest Pain, Palpitations , Orthopnea, PND, Edema Gastrointestinal: Reports: No Symptoms - Patient Data Vitals - Most Recent: Last Vital Signs Temp 96.6 F 03/02/17 08:04 Pulse 82 03/02/17 12:22 Resp 18 03/02/17 08:04 BP 106/57 L 03/02/17 09:37 Pulse Ox 97 03/02/17 11:24 Weight - Most Recent: 246 lb 6 oz I&O - Last 24 Hours: Intake & Output 03/01/17 03/02/17 03/02/17 22:59 06:59 14:59 Intake Total 480 650 150 Output Total 550 300 400 Balance -70 350 -250 Lab Results Last 24 Hours: Laboratory Results - last 24 hr 03/02/17 03/02/17 03/02/17 Range/Units 06:16 06:16 06:16 WBC 15.3 H (4.5-11.0) K/uL RBC 4.77 (4.30-5.90) M/uL Hgb 14.4 (12.0-15.0) g/dL Hct 44.5 (40.0-54.0) % MCV 93 (80-98) fL MCH 30 (27-31) pg MCHC 32 (32-36) % Plt Count 212 (150-400) K/uL PT 30.1 H (9.5-12.0) sec INR 2.70 H (0.80-1.20) Sodium 139 L (140-148) mmol/L Potassium 4.7 (3.6-5.2) mmol/L Chloride 105 (100-108) mmol/L Carbon Dioxide 28 (21-32) mmol/L Anion Gap 10.7 (5.0-14.0) mmol/L BUN 36 H (7-18) mg/dL Creatinine 1.1 (0.8-1.3) mg/dL Est Cr Clr Drug Dosing 49.77 mL/min Estimated GFR (MDRD) > 60 (>60) Glucose 198 H (74-106) mg/dL Calcium 7.3 L (8.5-10.1) mg/dL Fran Results Last 24 Hours: Microbiology 02/28/17 01:36 Gram Stain - Final Sputum - Expectorated Respiratory Culture - Final NORMAL RESPIRATORY [facility] 2 DAYS Med Orders - Current: Current Medications Acetaminophen (Tylenol) 650 mg PO Q4H PRN PRN Reason: Pain (Mild 1-3)/fever Hydrocodone Bitart/Acetaminophen ([place] 325-5 Mg) 1 tab PO Q4H PRN PRN Reason: Pain (moderate 4-6) Albuterol (Proventil Neb Soln) 2.5 mg NEB Q4H PRN PRN Reason: Shortness Of Breath/wheezing Last Admin: 03/02/17 07:43 Dose: 2.5 mg Albuterol/Ipratropium (Duoneb 3.0-0.5 Mg/3 Ml) 3 ml NEB QIDRT [facility] Last Admin: 03/02/17 11:24 Dose: 3 ml Amiodarone HCl (Cordarone) 200 mg PO QAM [facility] Last Admin: 03/02/17 09:37 Dose: 200 mg Artificial Tears (Natural Balance Tears) 0 ml EYEBOTH ASDIRECTED PRN PRN Reason: Dry Eyes Ascorbic Acid (Vitamin C) 1,000 mg PO DAILY [facility] Last Admin: 03/02/17 09:38 Dose: 1,000 mg Bisacodyl (Dulcolax) 5 mg PO DAILY PRN PRN Reason: Constipation Capsaicin (Zostrix 0.025% Crm) 0 gm TOP ASDIRECTED PRN PRN Reason: Pain Digoxin (Lanoxin) 125 mcg PO DAILY@1300 [facility] Last Admin: 03/02/17 12:22 Dose: 125 mcg Diltiazem HCl (Cardizem Sr) 60 mg PO DAILY [facility] Last Admin: 03/02/17 09:37 Dose: 60 mg Diphenhydramine HCl (Benadryl) 50 mg PO BEDTIME PRN PRN Reason: Sleep Last Admin: 02/28/17 23:52 Dose: 50 mg Docusate Sodium (Colace) 100 mg PO BID PRN PRN Reason: Constipation Folic Acid (Folic Acid) 1 mg PO DAILY [facility] Last Admin: 03/02/17 09:37 Dose: 1 mg Furosemide (Lasix) 40 mg PO BIDDIURETIC [facility] Last Admin: 03/02/17 07:50 Dose: 40 mg Gentamicin Sulfate (Garamycin 0.3% Ophth Soln) 0 ml EYEBOTH Q4HWA [facility] Stop: 03/04/17 23:01 Last Admin: 03/02/17 11:17 Dose: 4 drop Guaifenesin/Codeine Phosphate (Robitussin Ac) 10 ml PO TID [facility] Last Admin: 03/02/17 09:43 Dose: 10 ml Levofloxacin/Dextrose 750 mg/ (Premix) 150 mls @ 100 mls/hr IV Q24H [facility] Last Admin: 03/02/17 08:35 Dose: 100 mls/hr Insulin Aspart (Novolog) 0 unit SUBCUT QIDACANDBED [facility] PRN Reason: Protocol Last Admin: 03/02/17 12:24 Dose: 9 units Lactobacillus Rhamnosus (Culturelle) 2 cap PO BID [facility] Magnesium Hydroxide (Milk Of Magnesia) 30 ml PO Q12H PRN PRN Reason: Constipation Melatonin (Melatonin) 6 - 12 mg PO BEDTIME PRN PRN Reason: Insomnia Last Admin: 03/01/17 20:50 Dose: 6 mg Metformin HCl (Glucophage) 500 mg PO ACBREAKFAST [facility] Last Admin: 03/02/17 07:51 Dose: 500 mg Metformin HCl (Glucophage) 1,000 mg PO WITHDINNER [facility] Last Admin: 03/01/17 16:51 Dose: 1,000 mg Metoprolol Tartrate (Lopressor) 25 mg PO BID [facility] Last Admin: 03/02/17 09:37 Dose: 25 mg Morphine Sulfate (Morphine) 2 mg IVPUSH Q2H PRN PRN Reason: Pain (severe 7-10) Ondansetron HCl (Zofran Odt) 4 mg PO Q6H PRN PRN Reason: Nausea able to take PO Ondansetron HCl (Zofran) 4 mg IV Q4H PRN PRN Reason: Nausea/Vomiting Pantoprazole Sodium (Protonix) 40 mg PO ACBREAKFAST [facility] Last Admin: 03/02/17 07:51 Dose: 40 mg Phenyleph/Shark Oil/Min Oil/Petrol (Preparation H Oint) 0 gm RECTAL ASDIRECTED PRN PRN Reason: Hemorrhoids Last Admin: 03/01/17 22:06 Dose: 1 applic Pneumococcal Polyvalent Vaccine (Pneumovax 23) 0.5 ml IM .ONCE ONE Stop: 03/02/17 14:01 Potassium Chloride (Klor-Con M20) 40 meq PO BIDMEALS [facility] Last Admin: 03/02/17 07:57 Dose: 40 meq Prednisone (Prednisone) 20 mg PO DAILY [facility] Warfarin Sodium (Coumadin) 4 mg PO DAILY@1300 [facility] Last Admin: 03/02/17 12:24 Dose: 4 mg Zolpidem Tartrate (Ambien) 5 mg PO BEDTIME PRN PRN Reason: Sleep Discontinued Medications Ferrous Sulfate (Ferrous Sulfate) 325 mg PO BID [facility] Last Admin: 02/28/17 08:47 Dose: 325 mg Guaifenesin/Codeine Phosphate (Robitussin Ac) 10 ml PO Q6H [facility] Last Admin: 02/28/17 02:19 Dose: Not Given Guaifenesin/Codeine Phosphate (Robitussin Ac) 10 ml PO Q6H [facility] Last Admin: 02/28/17 13:37 Dose: 10 ml Ceftriaxone Sodium 2 gm/ (Sodium Chloride) 50 mls @ 100 mls/hr IV Q8H [facility] Last Admin: 02/28/17 02:35 Dose: Not Given Sodium Chloride (Normal Saline) 1,000 mls @ 125 mls/hr IV ASDIRECTED [facility] Last Admin: 02/28/17 08:52 Dose: 125 mls/hr Ceftriaxone Sodium 2 gm/ (Sodium Chloride) 50 mls @ 100 mls/hr IV Q24H [facility] Last Admin: 02/28/17 02:19 Dose: 100 mls/hr Ceftriaxone Sodium 2 gm/ (Sodium Chloride) 50 mls @ 100 mls/hr IV Q24H [facility] Last Admin: 02/28/17 21:39 Dose: 100 mls/hr Sodium Chloride (Normal Saline) 1,000 mls @ 75 mls/hr IV ASDIRECTED [facility] Last Admin: 02/28/17 21:39 Dose: 75 mls/hr Insulin Aspart (Novolog) 0 unit SUBCUT QIDACANDBED [facility] PRN Reason: Protocol Last Admin: 03/01/17 16:50 Dose: Not Given Insulin Aspart (Novolog) 10 unit SUBCUT ONETIME ONE Stop: 03/01/17 16:46 Last Admin: 03/01/17 16:45 Dose: 10 units Lorazepam (Ativan) 1 mg IV Q6H PRN PRN Reason: Nausea/Vomiting Melatonin (Melatonin) 6 mg PO BEDTIME PRN PRN Reason: Insomnia Last Admin: 02/28/17 21:42 Dose: 6 mg Methylprednisolone Sodium Succinate (Solu-Medrol) 125 mg IVPUSH Q8H [facility] Last Admin: 02/28/17 02:19 Dose: 125 mg Methylprednisolone Sodium Succinate (Solu-Medrol) 62.5 mg IVPUSH Q8H [facility] Stop: 03/01/17 02:00 Last Admin: 03/01/17 02:52 Dose: 62.5 mg Prednisone (Prednisone) 20 mg PO BIDAC [facility] Last Admin: 03/02/17 07:50 Dose: 20 mg Warfarin Sodium (Coumadin) 4 mg PO DAILY@1300 [facility] - Exam Quality Assessment: DVT Prophylaxis. No: Supplemental Oxygen General: Alert, Oriented, Cooperative, Mild Distress Lungs: Normal Respiratory Effort, Decreased Breath Sounds, Rhonchi, Wheezing. No: Crackles, Rales, Rub, Stridor Cardiovascular: Regular Rate, Regular Rhythm, No Murmurs GI/Abdominal Exam: Soft, Non-Tender, No Organomegaly, No Distention Extremities: Non-Tender, No Pedal Edema Skin: Warm, Dry, Intact - Problem List Review Problem List Initiated/Reviewed/Updated: Yes - My Orders Last 24 Hours: My Active Orders 03/02/17 12:47 CLOSTRIDIUM DIFFICILE BY PCR [RM] Stat 03/02/17 13:00 Lactobacillus Rhamnosus GG [Culturelle] 2 cap PO BID 03/03/17 05:00 BASIC METABOLIC PANEL,BMP [CHEM] Timed CBC WITH AUTO DIFF [HEME] Timed INR,PT,PROTHROMBIN TIME [COAG] Timed 03/03/17 09:00 predniSONE 20 mg PO DAILY - Plan Plan:: ASSESSMENT AND PLAN - Right lower lober pneumonia with hypoxia - improved since admission, no longer requiring supplemental oxygen. -IV Levofloxacin 750mg every 24 hours -IV Rocephin 2mg every 24 hours -Saline lock IV -Follow-up sputum culture -Scheduled and as needed nebulizers -Prednisone 20 mg by mouth daily Diarrhea-likely secondary to current antibiotics -C. 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 -Continue metformin -High-dose sliding scale insulin Essential hypertension - blood pressure currently normal but will need to be monitored closely with active infection. Usual medications will be continued unless blood pressure trends down Hx of artificial Heart Valve replacement - INR therapeutic -Coumadin therapy -continue home medication Bilateral Conjunctivitis - clinically much better -Gentamycin opth ointment as directed -eye care cleansing Maintenance issues - - DVT prophylaxis - warfarin - GI prophylaxis - PPI - Nutrition - regular diet - Sarmiento catheter - not indicated Disposition - anticipate discharge home after the hospital stay Primary care physician - [facility]
[2017-03-02] MEDS: Lactobacillus Rhamnosus GG (Probiotic) Cap PO SCH ×2 (13:31→21:42)
[2017-03-02] MEDS ORDERED: Pneumococcal Polyvalent-23 Vaccine 0.5 ML SDV IM ONE (14:00)
[2017-03-02] MEDS: Mineral Oil/Petrolatum/Phenylephrine/Shark Liver Oil Oint 57 GM Tube RECTAL PRN (17:40)
[2017-03-02] MEDS: Melatonin 3 MG Tab PO PRN (21:43)
[2017-03-03] MEDS: Albuterol 0.083% 2.5 MG/3 ML Neb Soln NEB PRN (02:38)
[2017-03-03] MEDS: Albuterol/Ipratropium 3.0-0.5 MG/3 ML Neb Soln NEB SCH ×4 (07:17→21:34)
[2017-03-03] MEDS ORDERED: predniSONE 20 MG Tab PO SCH (08:00)
[2017-03-03] MEDS: Gentamicin 0.3% Ophth Soln 5 ML Bottle EYEBOTH SCH ×5 (08:29→22:11)
[2017-03-03] MEDS: Pantoprazole 40 MG Tab.CR PO SCH (08:30)
[2017-03-03] MEDS: metFORMIN 500 MG Tab PO SCH ×2 (08:30→16:44)
[2017-03-03] MEDS: Potassium Chloride 20 MEQ Tab.ER PO SCH ×2 (08:31→16:45)
[2017-03-03] MEDS: Furosemide 40 MG Tab PO SCH ×2 (08:32→15:32)
[2017-03-03] MEDS: Levofloxacin/Dextrose 5%-Water 750 MG in Premix Bag 1 BAG IV SCH (08:35)
[2017-03-03] MEDS: Amiodarone 200 MG Tab PO SCH (08:36)
[2017-03-03] MEDS: Lactobacillus Rhamnosus GG (Probiotic) Cap PO SCH ×2 (08:36→21:28)
[2017-03-03] MEDS: Diltiazem 60 MG Cap.SR PO SCH (08:36)
[2017-03-03] MEDS: Metoprolol Tartrate 25 MG Tab PO SCH ×2 (08:37→21:28)
[2017-03-03] MEDS: Folic Acid 1 MG Tab PO SCH (08:37)
[2017-03-03] MEDS: Ascorbic Acid 500 MG Tab PO SCH (08:37)
[2017-03-03] MEDS: Codeine/guaiFENesin 100mg-10 MG/5 ML Syrup 10 ML Cup PO SCH ×3 (08:46→21:34)
[2017-03-03] MEDS: Insulin Aspart 100 Units/ML 3 ML Pen SUBCUT SCH ×4 (08:46→21:26)
[2017-03-03] MEDS ORDERED: Pneumococcal Polyvalent-23 Vaccine 0.5 ML SDV IM ONE (10:00)
[2017-03-03] MEDS: Digoxin 125 MCG Tab PO SCH (13:28)
[2017-03-03] MEDS ORDERED: Furosemide 80 MG Tab PO SCH (15:39)
[2017-03-03] MEDS ORDERED: Furosemide 40 MG Tab PO ONE (15:52)
--- NOTE | 2017-03-03 15:58 | PCM.PN ---
- General Info Date of Service: 03/03/17 Subjective Update: Mr. Carrillo has felt further improved over the past 24 hours with less shortness of breath and good improvement in his cough. Unfortunately does have significant peripheral edema likely related to fluids that he received on admission. Vital signs have been good and he has been afebrile. - Review of Systems General: Denies: Fever, Weakness, Chills Pulmonary: Reports: Cough, Wheezing. Denies: Shortness of Breath, Sputum, Hemoptysis Cardiovascular: Reports: Dyspnea on Exertion, Edema. Denies: Chest Pain, Palpitations, Orthopnea, PND Gastrointestinal: Reports: No Symptoms Genitourinary: Reports: No Symptoms - Patient Data Vitals - Most Recent: Last Vital Signs Temp 97.4 F 03/03/17 15:41 Pulse 62 03/03/17 15:41 Resp 18 03/03/17 15:41 BP 114/61 03/03/17 15:41 Pulse Ox 93 L 03/03/17 15:41 Weight - Most Recent: 246 lb 6.006 oz I&O - Last 24 Hours: Intake & Output 03/03/17 03/03/17 03/03/17 06:59 14:59 22:59 Intake Total 500 Output Total 300 1325 Balance -300 -825 Lab Results Last 24 Hours: Laboratory Results - last 24 hr 03/03/17 03/03/17 03/03/17 Range/Units 05:10 05:10 05:10 WBC 13.1 H (4.5-11.0) K/uL RBC 4.86 (4.30-5.90) M/uL Hgb 14.6 (12.0-15.0) g/dL Hct 45.1 (40.0-54.0) % MCV 93 (80-98) fL MCH 30 (27-31) pg MCHC 32 (32-36) % Plt Count 200 (150-400) K/uL Add Manual Diff Yes Neutrophils % (Manual) 85 H (36-66) % Band Neutrophils % 4 L (5-11) % Lymphocytes % (Manual) 4 L (24-44) % Monocytes % (Manual) 7 H (2-6) % PT 38.7 H (9.5-12.0) sec INR 3.44 H (0.80-1.20) Sodium 141 (140-148) mmol/L Potassium 4.3 (3.6-5.2) mmol/L Chloride 106 (100-108) mmol/L Carbon Dioxide 30 (21-32) mmol/L Anion Gap 5.5 (5.0-14.0) mmol/L BUN 37 H (7-18) mg/dL Creatinine 0.9 (0.8-1.3) mg/dL Est Cr Clr Drug Dosing 60.98 mL/min Estimated GFR (MDRD) > 60 (>60) Glucose 115 H (74-106) mg/dL Calcium 7.1 L (8.5-10.1) mg/dL Fran Results Last 24 Hours: Microbiology 03/02/17 14:10 Clostridium difficile (PCR) - Final Stool / Feces NEGATIVE CDIFF TOXIN Med Orders - Current: Current Medications Acetaminophen (Tylenol) 650 mg PO Q4H PRN PRN Reason: Pain (Mild 1-3)/fever Hydrocodone Bitart/Acetaminophen ([place] 325-5 Mg) 1 tab PO Q4H PRN PRN Reason: Pain (moderate 4-6) Albuterol (Proventil Neb Soln) 2.5 mg NEB Q4H PRN PRN Reason: Shortness Of Breath/wheezing Last Admin: 03/03/17 02:38 Dose: 2.5 mg Albuterol/Ipratropium (Duoneb 3.0-0.5 Mg/3 Ml) 3 ml NEB QIDRT [facility] Last Admin: 03/03/17 14:40 Dose: 3 ml Amiodarone HCl (Cordarone) 200 mg PO QAM [facility] Last Admin: 03/03/17 08:36 Dose: 200 mg Artificial Tears (Natural Balance Tears) 0 ml EYEBOTH ASDIRECTED PRN PRN Reason: Dry Eyes Ascorbic Acid (Vitamin C) 1,000 mg PO DAILY [facility] Last Admin: 03/03/17 08:37 Dose: 1,000 mg Bisacodyl (Dulcolax) 5 mg PO DAILY PRN PRN Reason: Constipation Capsaicin (Zostrix 0.025% Crm) 0 gm TOP ASDIRECTED PRN PRN Reason: Pain Digoxin (Lanoxin) 125 mcg PO DAILY@1300 [facility] Last Admin: 03/03/17 13:28 Dose: 125 mcg Diltiazem HCl (Cardizem Sr) 60 mg PO DAILY [facility] Last Admin: 03/03/17 08:36 Dose: 60 mg Diphenhydramine HCl (Benadryl) 50 mg PO BEDTIME PRN PRN Reason: Sleep Last Admin: 02/28/17 23:52 Dose: 50 mg Docusate Sodium (Colace) 100 mg PO BID PRN PRN Reason: Constipation Folic Acid (Folic Acid) 1 mg PO DAILY [facility] Last Admin: 03/03/17 08:37 Dose: 1 mg Furosemide (Lasix) 80 mg PO BIDDIURETIC [facility] Gentamicin Sulfate (Garamycin 0.3% Ophth Soln) 0 ml EYEBOTH Q4HWA [facility] Stop: 03/04/17 23:01 Last Admin: 03/03/17 15:34 Dose: 2 drop Guaifenesin/Codeine Phosphate (Robitussin Ac) 10 ml PO TID [facility] Last Admin: 03/03/17 15:40 Dose: 10 ml Insulin Aspart (Novolog) 0 unit SUBCUT QIDACANDBED [facility] PRN Reason: Protocol Last Admin: 03/03/17 11:49 Dose: 3 units Lactobacillus Rhamnosus (Culturelle) 2 cap PO BID [facility] Last Admin: 03/03/17 08:36 Dose: 2 cap Levofloxacin (Levaquin) 750 mg PO Q24H [facility] Magnesium Hydroxide (Milk Of Magnesia) 30 ml PO Q12H PRN PRN Reason: Constipation Melatonin (Melatonin) 6 - 12 mg PO BEDTIME PRN PRN Reason: Insomnia Last Admin: 03/02/17 21:43 Dose: 6 mg Metformin HCl (Glucophage) 500 mg PO ACBREAKFAST [facility] Last Admin: 03/03/17 08:30 Dose: 500 mg Metformin HCl (Glucophage) 1,000 mg PO WITHDINNER [facility] Last Admin: 03/02/17 17:39 Dose: 1,000 mg Metoprolol Tartrate (Lopressor) 25 mg PO BID [facility] Last Admin: 03/03/17 08:37 Dose: 25 mg Morphine Sulfate (Morphine) 2 mg IVPUSH Q2H PRN PRN Reason: Pain (severe 7-10) Ondansetron HCl (Zofran Odt) 4 mg PO Q6H PRN PRN Reason: Nausea able to take PO Ondansetron HCl (Zofran) 4 mg IV Q4H PRN PRN Reason: Nausea/Vomiting Pantoprazole Sodium (Protonix) 40 mg PO ACBREAKFAST [facility] Last Admin: 03/03/17 08:30 Dose: 40 mg Phenyleph/Shark Oil/Min Oil/Petrol (Preparation H Oint) 0 gm RECTAL ASDIRECTED PRN PRN Reason: Hemorrhoids Last Admin: 03/02/17 17:40 Dose: 1 applic Potassium Chloride (Klor-Con M20) 40 meq PO BIDMEALS [facility] Last Admin: 03/03/17 08:31 Dose: 40 meq Zolpidem Tartrate (Ambien) 5 mg PO BEDTIME PRN PRN Reason: Sleep Discontinued Medications Ferrous Sulfate (Ferrous Sulfate) 325 mg PO BID [facility] Last Admin: 02/28/17 08:47 Dose: 325 mg Furosemide (Lasix) 40 mg PO BIDDIURETIC [facility] Last Admin: 03/03/17 15:32 Dose: 40 mg Guaifenesin/Codeine Phosphate (Robitussin Ac) 10 ml PO Q6H [facility] Last Admin: 02/28/17 02:19 Dose: Not Given Guaifenesin/Codeine Phosphate (Robitussin Ac) 10 ml PO Q6H [facility] Last Admin: 02/28/17 13:37 Dose: 10 ml Ceftriaxone Sodium 2 gm/ (Sodium Chloride) 50 mls @ 100 mls/hr IV Q8H [facility] Last Admin: 02/28/17 02:35 Dose: Not Given Levofloxacin/Dextrose 750 mg/ (Premix) 150 mls @ 100 mls/hr IV Q24H [facility] Last Admin: 03/03/17 08:35 Dose: 100 mls/hr Sodium Chloride (Normal Saline) 1,000 mls @ 125 mls/hr IV ASDIRECTED [facility] Last Admin: 02/28/17 08:52 Dose: 125 mls/hr Ceftriaxone Sodium 2 gm/ (Sodium Chloride) 50 mls @ 100 mls/hr IV Q24H [facility] Last Admin: 02/28/17 02:19 Dose: 100 mls/hr Ceftriaxone Sodium 2 gm/ (Sodium Chloride) 50 mls @ 100 mls/hr IV Q24H [facility] Last Admin: 02/28/17 21:39 Dose: 100 mls/hr Sodium Chloride (Normal Saline) 1,000 mls @ 75 mls/hr IV ASDIRECTED [facility] Last Admin: 02/28/17 21:39 Dose: 75 mls/hr Insulin Aspart (Novolog) 0 unit SUBCUT QIDACANDBED [facility] PRN Reason: Protocol Last Admin: 03/01/17 16:50 Dose: Not Given Insulin Aspart (Novolog) 10 unit SUBCUT ONETIME ONE Stop: 03/01/17 16:46 Last Admin: 03/01/17 16:45 Dose: 10 units Lorazepam (Ativan) 1 mg IV Q6H PRN PRN Reason: Nausea/Vomiting Melatonin (Melatonin) 6 mg PO BEDTIME PRN PRN Reason: Insomnia Last Admin: 02/28/17 21:42 Dose: 6 mg Methylprednisolone Sodium Succinate (Solu-Medrol) 125 mg IVPUSH Q8H [facility] Last Admin: 02/28/17 02:19 Dose: 125 mg Methylprednisolone Sodium Succinate (Solu-Medrol) 62.5 mg IVPUSH Q8H [facility] Stop: 03/01/17 02:00 Last Admin: 03/01/17 02:52 Dose: 62.5 mg Pneumococcal Polyvalent Vaccine (Pneumovax 23) 0.5 ml IM .ONCE ONE Stop: 03/03/17 10:01 Last Admin: 03/03/17 13:32 Dose: Not Given Prednisone (Prednisone) 20 mg PO BIDAC [facility] Last Admin: 03/02/17 07:50 Dose: 20 mg Prednisone (Prednisone) 20 mg PO DAILY@0800 [facility] Last Admin: 03/03/17 08:33 Dose: 20 mg Warfarin Sodium (Coumadin) 4 mg PO DAILY@1300 [facility] Warfarin Sodium (Coumadin) 4 mg PO DAILY@1300 [facility] Last Admin: 03/02/17 12:24 Dose: 4 mg Warfarin Sodium (Coumadin) 2 mg PO ONETIME ONE Stop: 03/03/17 13:01 Last Admin: 03/03/17 13:30 Dose: 2 mg - Exam Quality Assessment: DVT Prophylaxis General: Alert, Oriented, Cooperative, No Acute Distress Lungs: Decreased Breath Sounds, Wheezing. No: Crackles, Rales, Rhonchi, Rub, Stridor Cardiovascular: Regular Rate, Regular Rhythm, No Murmurs GI/Abdominal Exam: Soft, Non-Tender, No Organomegaly, No Distention Extremities: Non-Tender, Pedal Edema Skin: Warm, Dry, Intact - Problem List Review Problem List Initiated/Reviewed/Updated: Yes - My Orders Last 24 Hours: My Active Orders 03/03/17 15:39 Furosemide [Lasix] 80 mg PO BIDDIURETIC 03/03/17 16:00 Levofloxacin [Levaquin] 750 mg PO Q24H 03/04/17 05:11 INR,PT,PROTHROMBIN TIME [COAG] AM - Plan Plan:: ASSESSMENT AND PLAN - Right lower lober pneumonia with hypoxia - improved since admission, no longer requiring supplemental oxygen. Further improvement since yesterday with less shortness of breath and cough -Levofloxacin 750mg by mouth every 24 hours -Saline lock IV -Follow-up sputum culture -Scheduled and as needed nebulizers -Discontinue prednisone Fluid overload-with peripheral edema, likely secondary to IV fluids. -Give usual dose of metolazone now -Increase furosemide to 80 mg by mouth twice daily Diarrhea-likely secondary to current antibiotics, C. difficile was negative. 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 -Continue metformin -High-dose sliding scale insulin Essential hypertension - blood pressure currently normal but will need to be monitored closely with active infection. Usual medications will be continued unless blood pressure trends down Hx of artificial Heart Valve replacement - INR therapeutic -Coumadin therapy -continue home medication Bilateral Conjunctivitis - clinically much better -Gentamycin opth ointment as directed -eye care cleansing Maintenance issues - - DVT prophylaxis - warfarin - GI prophylaxis - PPI - Nutrition - regular diet - Sarmiento catheter - not indicated Disposition - anticipate discharge home after the hospital stay Primary care physician - [facility]
[2017-03-03] MEDS ORDERED: Metolazone 2.5 MG Tab PO ONE (15:59)
[2017-03-03] MEDS: Melatonin 3 MG Tab PO PRN (22:15)
[2017-03-04] MEDS: Albuterol/Ipratropium 3.0-0.5 MG/3 ML Neb Soln NEB SCH ×2 (07:27→10:50)
[2017-03-04] MEDS: Gentamicin 0.3% Ophth Soln 5 ML Bottle EYEBOTH SCH ×2 (07:46→10:15)
[2017-03-04] MEDS: metFORMIN 500 MG Tab PO SCH (07:55)
[2017-03-04] MEDS: Potassium Chloride 20 MEQ Tab.ER PO SCH (07:56)
[2017-03-04] MEDS: Pantoprazole 40 MG Tab.CR PO SCH (07:56)
[2017-03-04] MEDS: Insulin Aspart 100 Units/ML 3 ML Pen SUBCUT SCH (08:52)
[2017-03-04] MEDS: Folic Acid 1 MG Tab PO SCH (08:54)
[2017-03-04] MEDS: Ascorbic Acid 500 MG Tab PO SCH (08:54)
[2017-03-04] MEDS: Lactobacillus Rhamnosus GG (Probiotic) Cap PO SCH (08:54)
[2017-03-04] MEDS: Metoprolol Tartrate 25 MG Tab PO SCH (08:55)
[2017-03-04] MEDS: Diltiazem 60 MG Cap.SR PO SCH (08:57)
[2017-03-04] MEDS: Amiodarone 200 MG Tab PO SCH (08:57)
[2017-03-04] MEDS ORDERED: Levofloxacin 250 MG Tab PO SCH (09:00)
[2017-03-04] MEDS: Codeine/guaiFENesin 100mg-10 MG/5 ML Syrup 10 ML Cup PO SCH (10:08)
--- NOTE | 2017-03-04 11:47 | PCM.DCSUM1 ---
Discharge Summary - Hospital Course Brief History: Mr. Carrillo is an 86-year-old gentleman who was admitted through the emergency department with a recent history of cough, shortness of breath, and weakness. On evaluation in the emergency department was found to be hypoxic with a right lung infiltrate consistent with pneumonia. - Discharge Data Discharge Date: 03/04/17 Discharge Disposition: Home, W Home Health Agency 06 Condition: Fair - Discharge Diagnosis/Problem(s) (1) Pneumonia SNOMED Code(s): 855029435 ICD Code: J18.9 - PNEUMONIA, UNSPECIFIED ORGANISM Status: Acute Priority : High Current Visit: Yes Qualifiers: Pneumonia type: due to unspecified organism Laterality: right Lung location: lower lobe of lung Qualified Code(s): J18.1 - Lobar pneumonia, unspecified organism (2) Hypoxia SNOMED Code(s): 983556281 ICD Code: R09.02 - HYPOXEMIA Status: Acute Current Visit: Yes (3) Conjunctivitis of both eyes SNOMED Code(s): 4743857 ICD Code: H10.9 - UNSPECIFIED CONJUNCTIVITIS Status: Acute Priority: High Current Visit: Yes Qualifiers: Conjunctivitis type: acute Acute conjunctivitis type: bacterial Qualified Code(s): H10.33 - Unspecified acute conjunctivitis, bilateral (4) History of artificial heart valve Status: Chronic Priority: High Current Visit: Yes - Patient Summary/Data Consults: Consultations 02/28/17 01:04 OT Evaluation and Treatment [CONS] Routine Please Evaluate and Treat. OT Reason for Consult: Discharge Planning This query below is only for informational purposes and is not editable. PT Evaluation and Treatment [CONS] Routine Please Evaluate and Treat. PT Reason for Consult: Strengthening This query below is only for informational purposes and is not editable. Hospital Course: Mr. Carrillo is an 86-year-old gentleman who developed symptoms of shortness of breath, cough, and weakness. He was seen and evaluated in the emergency department of [facility] in [facility]. Chest x-ray showed evidence of a right lung infiltrate and he was found to be hypoxic. There was no evidence of sepsis on initial evaluation. Blood cultures were obtained and he was given IV fluids for hydration. Antibiotics were initiated with levofloxacin 750 mg every 24 hours. Unfortunately no beds were available at their facility and he was transferred here for direct admission for further management of his pneumonia. He received supplemental oxygen and ongoing antibiotic therapy. At the time of discharge cultures have remained negative with no significant growth. Hospital course was complicated by fluid retention and peripheral edema as well as diarrhea. Prior to discharge C. difficile was obtained and found to be negative. He was given increased dose of oral furosemide and had good diuresis but not total resolution of his peripheral edema. INR was monitored regularly because of chronic anticoagulation with warfarin because of a prosthetic heart valve. INR was found to be elevated likely secondary to interaction with antibiotic therapy. Warfarin will be held today, for the next 2 days he will take 2 mg daily, INR will be obtained on March 06. Because of ongoing peripheral edema he will take 80 mg of furosemide twice daily for the next 2 days and then resume his usual dose of 40 mg twice daily on March 06. Follow-up with his primary care provider will be scheduled within one week. Activity will be as tolerated and he's encouraged to follow a 2 g sodium diet and keep his legs elevated while sitting. Ofloxacin 500 mg daily will be continued over the next 3 days and then discontinued. He will be treated with probiotic therapy one tablet twice daily for the next month. - Patient Instructions Diet: Low Sodium Activity: As Tolerated Activity, Other: Please keep legs elevated while sitting Other/Special Instructions: Please schedule follow-up appointment with primary care provider within one week. Please arrange for home care with home physical therapy and occupational therapy. Instruct patient to double up on his furosemide 80 mg twice daily for the next 2 days. On March 06 resume usual dose of furosemide. While on levofloxacin, hold warfarin today, then 2 mg daily for the next 2 days. Resume usual dose of warfarin when he has completed his course of levofloxacin. Have home care check INR on March 06 and called to primary care provider. - Discharge Plan Prescriptions/Med Rec: Lactobacillus Rhamnosus GG [Culturelle] 1 cap PO BID #60 cap Levofloxacin [Levaquin] 500 mg PO Q24H #3 tablet Home Medications: Home Meds Acetaminophen [Mapap] 650 mg PO Q6H PRN 02/28/17 [History] Acetaminophen/HYDROcodone [Orient 325-5 MG] 0.5 - 1 tab PO Q4H PRN 02/28/17 [ History] Albuterol Sulfate 2.5 mg IH Q4H PRN 02/28/17 [History] Amiodarone [Cordarone] 200 mg PO QAM 02/28/17 [History] Ascorbic Acid 1,000 mg PO DAILY 02/28/17 [History] Capsaicin [Zostrix 0.025% Crm] 0.025 gm TP ASDIRECTED PRN 02/28/17 [History] Digoxin 125 mcg PO DAILY 02/28/17 [History] Diltiazem [Cardizem SR] 60 mg PO DAILY 02/28/17 [History] Docusate Sodium 100 mg PO BID 02/28/17 [History] Ferrous Sulfate 325 mg PO BID 02/28/17 [History] Folic Acid 1 mg PO DAILY 02/28/17 [History] Furosemide [Lasix] 40 mg PO BID 02/28/17 [History] Gentamicin [Gentak 0.3% Ophth Oint] 1 - 2 drop EYEBOTH Q4HWA 02/28/17 [History] Metoprolol Tartrate 25 mg PO BID 02/28/17 [History] Multivits,Ca,Min/Iron/FA/Lycop [Centrum Men's Tablet] 1 tab PO QAM 02/28/17 [ History] [place]-3S/DHA/Epa/Fish Oil [Fish Oil [place]-3 Softgel] 1 cap PO BID 02/28/17 [ History] Omeprazole 20 mg PO BIDAC 02/28/17 [History] Polyvinyl Alcohol [LiquiTears 1.4% Ophth Soln] 1 drop EYEBOTH ASDIRECTED PRN 08/10 [History] Potassium Chloride [Klor-Con M20] 40 meq PO BID 02/28/17 [History] Warfarin Sodium [Coumadin] 4 mg PO DAILY 02/28/17 [History] diphenhydrAMINE [Benadryl] 50 mg PO BEDTIME PRN 02/28/17 [History] metFORMIN [Glucophage] 500 mg PO TIDMEALS 02/28/17 [History] Metolazone 2.5 mg PO ASDIRECTED 03/03/17 [History] Lactobacillus Rhamnosus GG [Culturelle] 1 cap PO BID #60 cap 03/04/17 [Rx] Levofloxacin [Levaquin] 500 mg PO Q24H #3 tablet 03/04/17 [Rx] - Patient Data Vitals - Most Recent: Last Vital Signs Temp 96.3 F 03/04/17 07:40 Pulse 64 03/04/17 10:52 Resp 17 03/04/17 07:40 BP 103/62 03/04/17 08:55 Pulse Ox 97 03/04/17 07:40 Weight - Most Recent: 246 lb 6.006 oz I&O - Last 24 hours: Intake & Output 03/03/17 03/04/17 03/04/17 22:59 06:59 14:59 Intake Total 1590 Output Total 2900 1999 Balance -0 -1999 Lab Results - Last 24 hrs: Laboratory Results - last 24 hr 03/04/17 Range/Units 05:42 PT 40.9 H (9.5-12.0) sec INR 3.62 H (0.80-1.20) Med Orders - Current: Current Medications Acetaminophen (Tylenol) 650 mg PO Q4H PRN PRN Reason: Pain (Mild 1-3)/fever Hydrocodone Bitart/Acetaminophen ([place] 325-5 Mg) 1 tab PO Q4H PRN PRN Reason: Pain (moderate 4-6) Albuterol (Proventil Neb Soln) 2.5 mg NEB Q4H PRN PRN Reason: Shortness Of Breath/wheezing Last Admin: 03/03/17 02:38 Dose: 2.5 mg Albuterol/Ipratropium (Duoneb 3.0-0.5 Mg/3 Ml) 3 ml NEB QIDRT [facility] Last Admin: 03/04/17 10:50 Dose: 3 ml Amiodarone HCl (Cordarone) 200 mg PO QAM [facility] Last Admin: 03/04/17 08:57 Dose: 200 mg Artificial Tears (Natural Balance Tears) 0 ml EYEBOTH ASDIRECTED PRN PRN Reason: Dry Eyes Ascorbic Acid (Vitamin C) 1,000 mg PO DAILY [facility] Last Admin: 03/04/17 08:54 Dose: 1,000 mg Bisacodyl (Dulcolax) 5 mg PO DAILY PRN PRN Reason: Constipation Capsaicin (Zostrix 0.025% Crm) 0 gm TOP ASDIRECTED PRN PRN Reason: Pain Digoxin (Lanoxin) 125 mcg PO DAILY@1300 [facility] Last Admin: 03/03/17 13:28 Dose: 125 mcg Diltiazem HCl (Cardizem Sr) 60 mg PO DAILY [facility] Last Admin: 03/04/17 08:57 Dose: 60 mg Diphenhydramine HCl (Benadryl) 50 mg PO BEDTIME PRN PRN Reason: Sleep Last Admin: 02/28/17 23:52 Dose: 50 mg Docusate Sodium (Colace) 100 mg PO BID PRN PRN Reason: Constipation Folic Acid (Folic Acid) 1 mg PO DAILY [facility] Last Admin: 03/04/17 08:54 Dose: 1 mg Furosemide (Lasix) 80 mg PO BIDDIURETIC [facility] Last Admin: 03/04/17 07:57 Dose: 80 mg Gentamicin Sulfate (Garamycin 0.3% Ophth Soln) 0 ml EYEBOTH Q4HWA [facility] Stop: 03/04/17 23:01 Last Admin: 03/04/17 10:15 Dose: 1 drop Guaifenesin/Codeine Phosphate (Robitussin Ac) 10 ml PO TID [facility] Last Admin: 03/04/17 10:08 Dose: 10 ml Insulin Aspart (Novolog) 0 unit SUBCUT QIDACANDBED [facility] PRN Reason: Protocol Last Admin: 03/04/17 08:52 Dose: Not Given Lactobacillus Rhamnosus (Culturelle) 2 cap PO BID [facility] Last Admin: 03/04/17 08:54 Dose: 2 cap Levofloxacin (Levaquin) 750 mg PO Q24H [facility] Last Admin: 03/04/17 08:56 Dose: 750 mg Magnesium Hydroxide (Milk Of Magnesia) 30 ml PO Q12H PRN PRN Reason: Constipation Melatonin (Melatonin) 6 - 12 mg PO BEDTIME PRN PRN Reason: Insomnia Last Admin: 03/03/17 22:15 Dose: 6 mg Metformin HCl (Glucophage) 500 mg PO ACBREAKFAST [facility] Last Admin: 03/04/17 07:55 Dose: 500 mg Metformin HCl (Glucophage) 1,000 mg PO WITHDINNER [facility] Last Admin: 03/03/17 16:44 Dose: 1,000 mg Metolazone (Zaroxolyn) 2.5 mg PO TuSa@0800 [facility] Metoprolol Tartrate (Lopressor) 25 mg PO BID [facility] Last Admin: 03/04/17 08:55 Dose: 25 mg Morphine Sulfate (Morphine) 2 mg IVPUSH Q2H PRN PRN Reason: Pain (severe 7-10) Ondansetron HCl (Zofran Odt) 4 mg PO Q6H PRN PRN Reason: Nausea able to take PO Ondansetron HCl (Zofran) 4 mg IV Q4H PRN PRN Reason: Nausea/Vomiting Pantoprazole Sodium (Protonix) 40 mg PO ACBREAKFAST [facility] Last Admin: 03/04/17 07:56 Dose: 40 mg Phenyleph/Shark Oil/Min Oil/Petrol (Preparation H Oint) 0 gm RECTAL ASDIRECTED PRN PRN Reason: Hemorrhoids Last Admin: 03/02/17 17:40 Dose: 1 applic Potassium Chloride (Klor-Con M20) 40 meq PO BIDMEALS [facility] Last Admin: 03/04/17 07:56 Dose: 40 meq Zolpidem Tartrate (Ambien) 5 mg PO BEDTIME PRN PRN Reason: Sleep Discontinued Medications Ferrous Sulfate (Ferrous Sulfate) 325 mg PO BID [facility] Last Admin: 02/28/17 08:47 Dose: 325 mg Furosemide (Lasix) 40 mg PO BIDDIURETIC [facility] Last Admin: 03/03/17 15:32 Dose: 40 mg Furosemide (Lasix) 40 mg PO ONETIME ONE Stop: 03/03/17 15:53 Last Admin: 03/03/17 15:56 Dose: 40 mg Guaifenesin/Codeine Phosphate (Robitussin Ac) 10 ml PO Q6H [facility] Last Admin: 02/28/17 02:19 Dose: Not Given Guaifenesin/Codeine Phosphate (Robitussin Ac) 10 ml PO Q6H [facility] Last Admin: 02/28/17 13:37 Dose: 10 ml Ceftriaxone Sodium 2 gm/ (Sodium Chloride) 50 mls @ 100 mls/hr IV Q8H [facility] Last Admin: 02/28/17 02:35 Dose: Not Given Levofloxacin/Dextrose 750 mg/ (Premix) 150 mls @ 100 mls/hr IV Q24H [facility] Last Admin: 03/03/17 08:35 Dose: 100 mls/hr Sodium Chloride (Normal Saline) 1,000 mls @ 125 mls/hr IV ASDIRECTED [facility] Last Admin: 02/28/17 08:52 Dose: 125 mls/hr Ceftriaxone Sodium 2 gm/ (Sodium Chloride) 50 mls @ 100 mls/hr IV Q24H [facility] Last Admin: 02/28/17 02:19 Dose: 100 mls/hr Ceftriaxone Sodium 2 gm/ (Sodium Chloride) 50 mls @ 100 mls/hr IV Q24H [facility] Last Admin: 02/28/17 21:39 Dose: 100 mls/hr Sodium Chloride (Normal Saline) 1,000 mls @ 75 mls/hr IV ASDIRECTED [facility] Last Admin: 02/28/17 21:39 Dose: 75 mls/hr Insulin Aspart (Novolog) 0 unit SUBCUT QIDACANDBED [facility] PRN Reason: Protocol Last Admin: 03/01/17 16:50 Dose: Not Given Insulin Aspart (Novolog) 10 unit SUBCUT ONETIME ONE Stop: 03/01/17 16:46 Last Admin: 03/01/17 16:45 Dose: 10 units Lorazepam (Ativan) 1 mg IV Q6H PRN PRN Reason: Nausea/Vomiting Melatonin (Melatonin) 6 mg PO BEDTIME PRN PRN Reason: Insomnia Last Admin: 02/28/17 21:42 Dose: 6 mg Methylprednisolone Sodium Succinate (Solu-Medrol) 125 mg IVPUSH Q8H [facility] Last Admin: 02/28/17 02:19 Dose: 125 mg Methylprednisolone Sodium Succinate (Solu-Medrol) 62.5 mg IVPUSH Q8H [facility] Stop: 03/01/17 02:00 Last Admin: 03/01/17 02:52 Dose: 62.5 mg Metolazone (Zaroxolyn) 2.5 mg PO ONETIME ONE Stop: 03/03/17 16:00 Last Admin: 03/03/17 16:44 Dose: 2.5 mg Pneumococcal Polyvalent Vaccine (Pneumovax 23) 0.5 ml IM .ONCE ONE Stop: 03/03/17 10:01 Last Admin: 03/03/17 13:32 Dose: Not Given Prednisone (Prednisone) 20 mg PO BIDAC [facility] Last Admin: 03/02/17 07:50 Dose: 20 mg Prednisone (Prednisone) 20 mg PO DAILY@0800 [facility] Last Admin: 03/03/17 08:33 Dose: 20 mg Warfarin Sodium (Coumadin) 4 mg PO DAILY@1300 [facility] Warfarin Sodium (Coumadin) 4 mg PO DAILY@1300 [facility] Last Admin: 03/02/17 12:24 Dose: 4 mg Warfarin Sodium (Coumadin) 2 mg PO ONETIME ONE Stop: 03/03/17 13:01 Last Admin: 03/03/17 13:30 Dose: 2 mg *Q Meaningful Use (DIS) - VTE *Q VTE Criteria *Q: - Stroke *Q Stroke Criteria *Q: - AMI *Q AMI Criteria *Q:
[2017-03-07] MEDS ORDERED: Metolazone 2.5 MG Tab PO SCH (08:00)
== END 2017-03-04 11:45 | disposition home health service (06) | DRG 195 ==
LOC: JP.MS 23:24
PROVIDERS: ADMIT Internal Medicine; ATTEND Hospitalist
DX: J18.1 Lobar pneumonia, unspecified organism (principal); I10 Essential (primary) hypertension; Z95.2 Presence of prosthetic heart valve; Z86.73 Personal history of transient ischemic attack (TIA), and cerebral infarction without residual deficits; I25.10 Atherosclerotic heart disease of native coronary artery without angina pectoris; Z87.891 Personal history of nicotine dependence; H10.33 Unspecified acute conjunctivitis, bilateral; R09.02 Hypoxemia; Z66 Do not resuscitate; E11.65 Type 2 diabetes mellitus with hyperglycemia; Z79.84 Long term (current) use of oral hypoglycemic drugs; Z79.01 Long term (current) use of anticoagulants; R60.9 Edema, unspecified; R19.7 Diarrhea, unspecified
CPT/HCPCS: 36415; 71045; 71045-26; 80048; 80053; 81001; 82962; 83605; 85025; 85027; 85610; 86140; 87070; 87205; 87493; 94640; 94667; 94668; 97161-GP; 97165-GO; A9270-GY; J0696; J1956; J2930; J7040; J7050; J7620